=== PATIENT | female | born 2000 | race African-American/Black ===

== ENCOUNTER 2024-08-28 21:42 | Emergency (ER) | payer OTHER, SELFPAY ==
[2024-08-28 21:44] VITALS: BP 173/107; PULSE 126; RESP 18; TEMP 36.8; O2SAT 100
[2024-08-28] MEDS: SODIUM CHLORIDE 0.9% IV 1,000 ML 999 ML IV CONT (23:07)
[2024-08-28] MEDS: ONDANSETRON INJ 4 MG/2 ML VIAL IV PUSH (23:07)
[2024-08-28 23:20] LABS: Basophils Percent Auto 0.4 % (0.2-1.2); Hematocrit 41.2 % (37.0-47.0); Hemoglobin 13.2 g/dL (12.0-15.0); Immature Granulocyte Absolute 0.01 K/mm3 (0.00-0.031); Immature Granulocyte Percent A 0.1 % (0-0.5); Lymphocytes Absolute Auto 0.69 K/mm3 (0.9-3.2); Lymphocytes Percent Auto 9.9 % (18.3-44.2); Mean Corpuscular Hemoglobin 24.8 pg (26-34); Mean Corpuscular Volume 77.3 fl (80-100); Mean Platelet Volume 9.2 fl (7.4-10.4); Monocytes Absolute Auto 0.5 K/mm3 (0.1-0.6); Neutrophils Absolute Auto 5.8 K/mm3 (1.3-6.7); Neutrophils Percent Auto 82.6 % (45.5-73.1); Platelet Count Result 269 k/mm3 (150-375); Red Blood Count 5.33 M/mm3 (4.2-5.4); Red Cell Distribution Width 18.8 % (11.5-14.5)
[2024-08-28 23:22] VITALS: PULSE 112; RESP 26; O2SAT 99
[2024-08-28 23:30] VITALS: PULSE 105; RESP 18; O2SAT 100
[2024-08-28 23:31] VITALS: BP 149/100; PULSE 103; RESP 18; O2SAT 100
[2024-08-28 23:43] LABS: Alanine Aminotransferase 75 U/L (6-35); Albumin Level 5.3 g/dL (3.5-5.1); Alkaline Phosphatase 113 U/L (38-126); Anion Gap 15 mmol/L (4-12); Aspartate Amino Transferase 154 U/L (14-36); Bilirubin,Total 1.6 mg/dL (0.2-1.3); Blood Urea Nitrogen 12 mg/dL (7-17); Calcium 9.9 mg/dL (8.4-10.2); Carbon Dioxide 21 mmol/L (22-30); Chloride 105 mmol/L (98-107); Estimated Glomerular Filt Rate > 60; Glucose 97 mg/dL (65-110); Lipase 63 U/L (23-300); Magnesium 1.4 mg/dL (1.6-2.3); Potassium 4.1 mmol/L (3.4-5.0); Sodium 141 mmol/L (137-145)
[2024-08-28 23:45] VITALS: PULSE 111; RESP 19; O2SAT 100
[2024-08-28 23:47] LABS: SPREG INTERNAL CONTROL Positive; Serum Qual hCG Negative
--- NOTE | 2024-08-28 23:51 | PC.NURSE ---
pt given ice chips and crackers per request. This is PO Challenge for patient per MD. RN to reassess patient.
[2024-08-28 23:57] LABS: Influenza A QL RT-PCR Negative (Negative); Influenza B QL RT-PCR Negative (Negative); SARS-CoV-2 RNA PCR Negative (Negative)
[2024-08-29] VITALS (7 sets, daily range): BP systolic 149–158; BP diastolic 107–110; PULSE 102–126; RESP 17–24; O2SAT 98–100
--- NOTE | 2024-08-29 00:02 | ED_ITS ---
HPI - General Adult General Chief complaint: Nausea/Vomiting/Diarrhea Stated complaint: ETOH withdrawl, n.v.d Time Seen by Provider: 08/28/24 22:55 History of Present Illness HPI narrative: Patient is a 23-year-old female who presents to the emergency department this evening complaining of nausea, vomiting and diarrhea since yesterday evening. Patient states that she is unsure if her symptoms are due to a GI bug or if she is withdrawing from alcohol. States that her last drink was yesterday arrived and 11:00 p.m.. Patient states that she normally drinks for cocktails per day, davids. Admits that she has never been in alcohol withdrawal before and never been admitted to the hospital for concern for alcohol withdrawals. Currently denying any chest pain or shortness of breath. Admits that she has had a mild headache, sore throat, and states that she has been having some anxiety as well which she has a history of. No additional symptoms or concerns at this time. Related Data Allergies Allergy/AdvReac Type Severity Reaction Status Date / Time red dye Allergy Intermediate Rash Verified 08/28/24 23:05 Review of Systems 2 Review of Systems: All systems are reviewed and are negative unless stated otherwise in the HPI. Exam 2 Narrative: General: Alert, awake, afebrile, in no acute distress. HEENT: PERRL, no rhinorrhea, no post nasal drip, oropharynx clear. Neck: Trachea midline, no JVD, no lymphadenopathy. Cardiovascular: Tachycardic with regular rhythm, no murmurs, rubs or gallops, no peripheral edema. Respiratory: Clear to auscultation bilaterally, no tachypnea, no wheezing, no rhonchi, no rubs, no respiratory distress. Abdomen: Soft, nontender, nondistended, no rebound, no guarding, no peritoneal signs. Musculoskeletal: No joint swelling or deformity, normal muscle tone. Skin: No rashes or petechia, no signs of infection. Psychiatric: Alert and oriented, normal behavior and judgment for situation. Neurological: Alert and oriented to person, place, and time. Follows all commands. No focal deficits, speech is clear and fluent. Course Vital Signs Vital signs: Vital Signs Temperature 98.2 F 08/28/24 21:44 Pulse Rate 126 H 08/28/24 21:44 Respiratory Rate 18 08/28/24 21:44 Blood Pressure 173/107 H 08/28/24 21:44 Pulse Oximetry 100 08/28/24 21:44 Oxygen Delivery Room Air 08/28/24 21:44 Temperature 98.2 F 08/28/24 21:44 Pulse Rate 104 H 08/29/24 00:59 Respiratory Rate 17 08/29/24 00:59 Blood Pressure 158/110 H 08/29/24 00:01 Pulse Oximetry 99 08/29/24 00:59 Oxygen Delivery Room Air 08/28/24 21:44 Medical Decision Making MDM Narrative Medical decision making narrative: The patient was evaluated by myself in the emergency department. History is obtained from patient who is an independent historian and physical exam was performed. External medical records were reviewed at this time. IV was established and pertinent tests were ordered. Patient was administered 2 L IV fluid bolus with normal saline, 4 mg of IV Zofran and 0.5 mg of IV Ativan. Laboratory results obtained revealing a magnesium of 1.4, AST 154, ALT 75 otherwise unremarkable. Patient was administered 1 g of IV magnesium at this time. Differential diagnosis considerations include dehydration, electrolyte derangements, acute viral syndrome, gastroenteritis, alcohol withdrawal. Comorbidities impacting this visit include daily alcohol use/alcohol use disorder. I have evaluated and discussed social determinants of health with the patient that could potentially impact subsequent diagnosis and treatment plans. On repeat assessment of the patient, reevaluation revealed that the patient is doing well and is in no acute distress. Patient symptoms have improved since she arrived to our emergency department. Repeat vital signs were all reviewed and noted to be stable with repeat heart rate of 100 beats per minute and blood pressure of 149/107 mmHg. Differential diagnosis and treatment plan were discussed with the patient at bedside. Patient agrees with discussion and after shared medical decision making agrees with discharge. All questions were answered to the patient's satisfaction. Patient will follow up with her PCP in 3-5 days. She was provided with a script for Librium to use as instructed for alcohol withdrawals. Patient was provided with strict return precautions and instructed to return to the emergency department if any new or worsening symptoms develop. The patient was discharged in stable condition. Vital Signs Vital Signs: Vital Signs Temperature 98.2 F 08/28/24 21:44 Pulse Rate 126 H 08/28/24 21:44 Respiratory Rate 18 08/28/24 21:44 Blood Pressure 173/107 H 08/28/24 21:44 Pulse Oximetry 100 08/28/24 21:44 Oxygen Delivery Room Air 08/28/24 21:44 Temperature 98.2 F 08/28/24 21:44 Pulse Rate 104 H 08/29/24 00:59 Respiratory Rate 17 08/29/24 00:59 Blood Pressure 158/110 H 08/29/24 00:01 Pulse Oximetry 99 08/29/24 00:59 Oxygen Delivery Room Air 08/28/24 21:44 Lab Data 08/28/24 23:11 08/28/24 23:11 Labs: Lab Results 08/28/24 08/29/24 08/29/24 Range/Units 23:11 00:42 00:43 WBC 7.0 (4.5-10.0) K/mm3 RBC 5.33 (4.2-5.4) M/mm3 Hgb 13.2 (12.0-15.0) g/dL Hct 41.2 (37.0-47.0) % MCV 77.3 L (80-100) fl MCH 24.8 L (26-34) pg MCHC 32.0 (32-36) g/dl RDW 18.8 H (11.5-14.5) % Plt Count 269 (150-375) k/mm3 MPV 9.2 (7.4-10.4) fl Immature Gran % (Auto) 0.1 (0-0.5) % Neut % (Auto) 82.6 H (45.5-73.1) % Lymph % (Auto) 9.9 L (18.3-44.2) % [place] % (Auto) 7.0 (2.6-8.5) % Eos % (Auto) 0.0 (0-4.4) % Baso % (Auto) 0.4 (0.2-1.2) % Lymph # (Auto) 0.69 L (0.9-3.2) K/mm3 [place] # (Auto) 0.5 (0.1-0.6) K/mm3 Eos # (Auto) 0.0 (0-0.3) K/mm3 Baso # (Auto) 0.0 (0.0-0.1) K/mm3 Abs Immat Gran (auto) 0.01 (0.00-0.031) K/mm3 Absolute Neuts (auto) 5.8 (1.3-6.7) K/mm3 Absolute Nucleated RBC 0.000 (0.0-0.012) K/mm3 Nucleated RBC % 0.0 (0.0-0.2) % Sodium 141 (137-145) mmol/L Potassium 4.1 (3.4-5.0) mmol/L Chloride 105 (98-107) mmol/L Carbon Dioxide 21 L (22-30) mmol/L Anion Gap 15 H (4-12) mmol/L BUN 12 (7-17) mg/dL Creatinine 0.91 (0.7-1.0) mg/dL Estim Creat Clear Calc Not Reportable Estimated GFR > 60 (59 - ) Glucose 97 (65-110) mg/dL Calcium 9.9 (8.4-10.2) mg/dL Magnesium 1.4 L (1.6-2.3) mg/dL Total Bilirubin 1.6 H (0.2-1.3) mg/dL AST 154 H (14-36) U/L ALT 75 H (6-35) U/L Alkaline Phosphatase 113 (38-126) U/L Total Protein 9.0 H (6.3-8.2) g/dL Albumin 5.3 H (3.5-5.1) g/dL Lipase 63 (23-300) U/L Serum HCG, Qual Negative Urine Color Pending Urine Appearance Pending Urine pH Pending Ur Specific [place] Pending Urine Protein Pending Urine Glucose (UA) Pending Urine Ketones Pending Ur Blood (Man) Pending Urine Nitrate Pending Urine Bilirubin Pending Urine Urobilinogen Pending Leukocyte Esterase Rfl Pending POC Urine HCG, Qual Pending Influenza A (RT-PCR) Negative (Negative) Influenza B (RT-PCR) Negative (Negative) SARS-CoV-2 RNA (RT-PCR) Negative (Negative) Discharge Plan Discharge Clinical Impression: Nausea & vomiting, Diarrhea, Alcohol use disorder, Hypomagnesemia Patient Disposition: Home, Self-Care Condition: Improved Instructions: Antibiotic Form, Gastroenteritis (ED), Alcohol Use Disorder (ED) Additional Instructions: Please follow-up with your family doctor within the next 3-5 days. Return to the emergency department if any new or worsening symptoms develop. Take the prescribed medication as instructed to help with alcohol withdrawal symptoms. Patient Language: Yoruba Prescriptions: New chlordiazepoxide HCl 25 mg capsule 25 mg PO .qd 4 Days Qty: 15 0RF Rx Instructions: Take 50 mg every 6 hours on day 1, 25 mg every 6 hours on day 2, 25 mg every 12 hours on day 3 and 25 mg once on day 4. Follow-up/Referrals: Danica Hernandez SENIOR QUALITY ENGINEER-C [Primary Care Provider] - 3 Days Time of Disposition: 01:01
[2024-08-29] MEDS: SODIUM CHLORIDE 0.9% IV 1,000 ML 999 ML IV CONT (00:16)
[2024-08-29] MEDS: LORazepam INJ (*CRX) 2 MG/ML VIAL 0.5 MG IV PUSH (00:17)
[2024-08-29] MEDS: MAGNESIUM SULF 1 GM/D5W 100 ML 1 GM/100 ML BAG IVPB (00:18)
[2024-08-29 01:03] LABS: BEDSIDEPREGUCG Negative (Negative)
[2024-08-29 01:48] LABS: Add Urine Microscopic? YES; Appearance Urine Clear (Clear); Bacteria Urine Rare /hpf; Bilirubin Urine Negative (Negative); Blood Urine 3+ (Negative); Color Urine Dark Yellow (Yellow); Glucose Urine UA Negative (Negative); Ketones Urine 3+ mg/dL (Negative); Leukocyte Esterase Ur Negative LEU/UL (Negative); Need Manual Microscopic Reviewed; Nitrate Urine Negative (Negative); Non Pathogenic Casts 0-2; Protein Urine 2+ mg/dL (Negative); RBC Urine 0-2 /hpf (0-2); Specific Grav Ur 1.031 (1.001-1.035); Squamous Epithelial Cell Urine Few /hpf (Few); WBC Urine 0-5 /hpf (0-3); pH Urine 6.5 (5.0-9.0)
== END 2024-08-29 02:06 | disposition home or self-care (01) ==
PROVIDERS: Emergency Provider Emergency Medicine; PCP Nurse Practitioner
DX: R11.2 Nausea with vomiting, unspecified (principal); F10.90 Alcohol use, unspecified, uncomplicated; E83.42 Hypomagnesemia; Z20.822 Contact with and (suspected) exposure to COVID-19
CPT/HCPCS: 36415; 80053; 81001; 81025; 83690; 83735; 84703; 85025; 87636; 96365; 96375; 99284; J2060; J2405; J3475; J7030

== ENCOUNTER 2024-11-10 12:19 | Outpatient (CLI) | payer OTHER, SELFPAY ==
--- OUTSIDE RECORDS SUMMARY | 2024-11-10 12:49 | XMS_ITS | Clinical Summary ---
Author Organization [facility] Address [address] [place] [address] Phone Care Team Providers Care Ensemble Member Name Role Phone Provider, None Primary Care Provider Unavailabl e Allergies Active Allergy Reactions Criticality Noted Date Comments Red Dye #40 (Allura Red) Hives,Other (se e Comments),Rash Medium 09/14/2018 Medications ondansetron (ZOFRAN) 4 MG Tablet Take 1 Tab by mouth every 8 hours as needed for Nausea - 1st line. 10 Tab 0 Active Additional Information Patient not taking.Reported on 10/15/2023 Active Problems Problem Noted Date Diagnosed Date Major depressive disorder, single episode, mild 01/23/2020 Seizures Family History Medical History Relation Name Comments Alcohol Abuse Father Depression Maternal Grandmother chroni c Alcohol Abuse Paternal Grandfather Relation Name Status Comments Father Maternal Grandmother Paternal Grandfather Social History Tobacco Use Types Packs/Day Years Used Date Smoking Tobacco: Never Smokeless Tobacco: Never Tobacco Cessation:Counseling Given: Not Answered Alcohol Use Standard Drinks/Week Comments No 0 (1 standard drink = 0.6 oz pur e alcohol) PHQ-2 Answer Date Recorded Total Score - Questions 1-9 8 03/2020 Education Answer Date Recorded What is the highest level of school you have completed or the highest degree you have received? 11th grade 01/22/2020 Sexually Active Control Partners Comments Yes Implant Male Comments No Sex and Gender Information Value Date Recorded Sex Assigned at Not on file Legal Sex Female 11:09 PM CDT Gender Identity Not on file Sexual Orientation Not on file Last Filed Vital Signs Vital Sign Reading Time Taken Comments Blood Pressure 136/78 10/25/2023 10:49 AM CDT Pulse 70 10/25/2023 10:49 AM CDT Temperature 37.1 C (98.7 F) 10/25/2023 10:49 AM CDT Respiratory Rate 18 10/25/2023 10:49 AM CDT Oxygen Saturation 98% 10/25/2023 10:49 AM CDT Inhaled Oxygen Concentration - - Weight 68 kg (150 lb) 10/15/2023 6:26 PM PULP BEATER Height 170.2 cm (5' 7 ) 06/03/2020 12:03 PM CDT Body Mass Index - - Plan of Treatment Health Maintenance Due Date Last Done Comments Pap Smear 12/05/2023 Influenza Immunization (#1) 2024 SARS-COV-2 Immunization ( season) 2024 Respiratory Syncytial Virus (RSV) Immunization (Adult) (1 - 1-dose 75+ series) 2077 Hepatitis B Immunization Completed 003, 02/12/2003, 2002 Pneumococcal Immunization Combined Aged Out 12/06/2003, 04/17/2003, 02/12/2003 No longer eligible based on patient's age to complete this topic Measles Mumps Rubella (MMR) Immunization Discontinued 01/31/2007, 12/06/2003 Polio (IPV) Immunization Discontinued 007, 03/06/2004, 04/17/2003, Additional history exists Varicella Immunization Discontinued 01/31/2007, 2003 Hepatitis A Immunization Discontinued 04/19/2008, 04/17 DTaP/Tdap/Td Immunization Discontinued 2013, 01/31/2007, 03/06/2004, Additional history exists TdaP Immunization Completed 05/08/2014 Human Papillomavirus (HPV) Immunization Completed 03/13/2016, 03/20/2015, 05/08/2014 Meningococcal Immunization (ACWY) Completed 01/13/2019, 01/13/2019, 05/08/2014 Meningococcal B Immunization Completed 05/23/2019, 01/13/2019 Hepatitis C Virus (HCV) Screening Completed 10/25/2023 Rotavirus Immunization Aged Out No lo nger eligible based on patient's age to complete this topic Goals Goal Patient Goal Type Associated Problems Recent Progress Patient-Stated? Author Behavioral Health Behavioral Health On track(2019 10:54 AM CDT) No Deloris Luther LCPC Note: Pt's declined to identify a goal; pt's aunt reported and pt agreed with a goal to clear her mind , always been depressed since her mom . Goal Reviewed with: patient and Aunt/Guardian. Readiness to change: Not yet ready to make a change Department associated with goal: [facility] Steps to achieve goal: 1. Pt to attend psychotherapy sessions at least twice monthly. 2. Pt to be able to identify and self disclose how she is feeling emotionally and at least one contributing factor during each session. Behavioral Health Behavioral Health On track(2019 10:54 AM CDT) Deloris Marie LCPC Note: Maureen to gain some healing of loss and grief, due to her mother's . Goal Reviewed with: patient Readiness to change: Not yet ready to make a change Department associated with goal: [facility] Steps to achieve goal: 1. Jimmiela to disclose and process thoughts and feelings of loss and grief. 2. Jimmiela to learn about and express insight gained regarding the process and impact of loss and grief. 3. Jimmiela to identify at least two outlets for thoughts and feelings to cope and gain relief from distressing emotions/thoughts. Procedures Procedure Name Priority Date/Time Associated Diagnosis Comments HEPATITIS PANEL ACUTE (AHP) Routine 10/25/2023 11:17 AM CDT Possible exposure to STD from Last 3 Months or Most Recently Relevant to Health Maintenance Results * HEPATITIS PANEL ACUTE (AHP) (10/25/2023 11:17 AM CDT) HEPATITIS A IGM ANTIBODY NON DETECTED NON DETECTED [facility] [id number] B 10/25/2023 11:18 PM CDT [facility] Comment: IGM Antibodies to HAV not detected. Does not exclude early acute or recovered HAV infection. HEP B CORE AB (IGM) NON DETECTED NON DETECTED [facility] [id number] B 10/25/2023 11:18 PM CDT [facility] Comment:IGM anti-HBC not det ected. Does not exclude the possibility of exposure to or infection with HBV. HEPATITIS B SURFACE ANTIGEN NON DETECTED NON DETECTED [facility] [id number] B 10/25/2023 11:18 PM CDT [facility] Comment:A nonreactive test r esult does not exclude the possibility of exposure to or infection with Hepatitis B virus. A nonreactive test result in individuals with prior exposure to hepatitis B may be due to antigen levels below the detection limit of this assay or lack of antigen reactivity to the antibodies in this assay. hepatitis C antibody 0.10 <1 S/CO [facility] [id number] B 10/25/2023 11:18 PM CDT [facility] Comment: Signal/Cutoff ratio < 0.79 is Nondetected Signal/Cutoff ratio 0.80-0.99 is Grayzone Signal/Cutoff ratio > 0.99 is Detected Supplemental assays are recommended if signal/cutoff ratio is >/=1.00. Signal/cutoff ratio result >/= 5.00 is 97% predictive of positivity for recombinant immunoblot assay (RIBA) and will be reported to the [place] Department of Public Health as required. Blood Venipuncture / Unknown 10/25/2023 11:17 AM CDT 10/25/2023 11:18 AM CDT us Rell Jones [facility] Final R esult [facility] [address] [place] [address], [place] from Last 3 Months or Most Recently Relevant to Health Maintenance Insurance [place] Care Teams Ensemble Member Relationship Specialty Start Date End Date Provider, None [place] PCP - General 10/15/23
--- OUTSIDE RECORDS SUMMARY | 2024-11-10 12:49 | XMS_ITS | Clinical Summary ---
Author Organization [facility] Address [address] [place] [address] Care Team Providers Care Nuclear Plant Construction Worker Name Role Phone Monica Lopez MD Primary Care Provider Allergies Active Allergy Reactions Criticality Noted Date Comments Red Dye Hives Medium 09/14/2018 Medications No known medications Active Problems Problem Noted Date Diagnosed Date History of seizures as a child 10/27/2022 Overview (10/27/2022): has outgrown. no longer on seizure medications. last seziure in 2012. Iron deficiency anemia due to chronic blood loss 10/27/2022 Resolved Problems Problem Noted Date Diagnosed Date Resolved Date Seizures (CMS/HCC) 10/01/2020 Major depressive disorder, s leanne episode, mild 01/23/2020 10/27/2022 Seizure-like activity (CMS/HCC) 06/12/2019 10/27/2022 Overview (10/01/2020): Last Assessment & Plan: Recent episode related to position that she was in and likely resulted in a passing out spell, not her typical seizure. She has been seizure free since 2012. No additional restrictions needed at this time since this was a triggered event and not a seizure. Call for any further events of concern, if any. Craniosynostosis 04/25/2013 10/27/2022 Partial seizure disorder (CMS/HCC) 04/25/2013 10/27/2022 Overview (10/01/2020): Last Assessment & Plan: Has remained seizure free since 2012. No present neurological concerns. Crab Meat Processor's permit authorization completed. Call for any future neurological concerns. Immunizations Immunization Administration Dates Next Due DTaP 01/31/2007, 4,06/07/2003,04/17/2003 ,02/12/2003 HPV, Quadrivalent 05/08/2014 HPV9 03/13/2016,03/20/2015 Hep A, Pediatric 04/19/2008,05/14/2006 Hep B, Adolescent or Pediatric 06/07/2003,2002,2002 HiB 03/06/2004,04/17/2003,02/12/2003 IPV 01/31/2007,03/06/2004,04/17/2003 ,02/12/2003 MMR 01/31/2007,12/06/2003 Meningococcal B, OMV (Bexsero) 05/23/2019,2018 Meningococcal Conjugate (Menveo) 05/08/2014 Meningococcal MCV4P (Menactra) 01/13/2019 Pneumococcal Conjugate 7-Valent 12/06/2003,04/17,02/12/2003 Tdap 05/08/2014 Varicella 01/31/2007,12/06/2003 Surgical History Surgery Date Site/Laterality Comments CRANIECTOMY FOR CRANIOSYNOSTOSIS when she was a baby Medical History Medical History Date Comments Eczema Seizure disorder (HCC) Craniosynostosis 04/25/2013 Partial seizure disorder (HCC) 04/25/2013 L ast Assessment & Plan: Has remained seizure free since 2012. No present neurological concerns. Crab Meat Processor's permit authorization completed. Call for any future neurological concerns. Seizure-like activity (HCC) 06/12/2019 Last Assessment & Plan: Recent episode related to position that she was in and likely resulted in a passing out spell, not her typical seizure. She has been seizure free since 2012. No additional restrictions needed at this time since this was a triggered event and not a seizure. Call for any further events of concern, if any. Family History Medical History Relation Name Comments No Known Problems Father Sickle cell trait Mother Depression Other mother's side o f the family Relation Name Status Comments Father Mother Other Social History Tobacco Use Types Packs/Day Years Used Date Smoking Tobacco: Never Smokeless Tobacco: Never Tobacco Cessation:Counseling Given: Not Answered PHQ-2 Answer Date Recorded PHQ-2 Total Score (If total score is 3 or more points, staff should administer the PHQ-9) 0 10/27/2022 Personal Safety Answer Date Recorded Getting School Help Needed Not on file 07/31 Comments No Sex and Gender Information Value Date Recorded Sex Assigned at Not on file Legal Sex Female 11:21 AM ELECTRONICS SUPERVISOR Gender Identity Not on file Sexual Orientation Not on file Obstetrics History Last Filed Vital Signs Vital Sign Reading Time Taken Comments Blood Pressure 114/68 10/27/2022 8:48 AM CDT Pulse 62 10/27/2022 8:48 AM CDT Temperature 38.2 C (100.7 F) 09/12/2021 12:42 PM ELECTRONICS SUPERVISOR Respiratory Rate 16 09/12/2021 12:42 PM ELECTRONICS SUPERVISOR Oxygen Saturation 98% 09/12/2021 12:42 PM ELECTRONICS SUPERVISOR Inhaled Oxygen Concentration - - Weight 65.8 kg (145 lb) 10/27/2022 8:48 AM CDT Height 170.2 cm (5' 7 ) 10/27/2022 8:48 AM CDT Body Mass Index 22.71 10/27/2022 8:48 AM CDT Plan of Treatment Health Maintenance Due Date Last Done Comments Cervical Cancer Screening 2002 Hepatitis C Screening 2002 Depression Screening 10/28/2023 10/27/2022 Regular Well Visit/Exam 18-64 10/28/2023 10/27/2022 Influenza Vaccine (#1) 2024 DTaP/Tdap/Td Vaccine (7 - Td or Tdap) 05/08/2024 05/08/2014, 01/31/2007, 03/06/2004, Additional history exists Hepatitis B Screening Completed 06/07/2003 , 02/12/2003, 2002 Pneumococcal vaccine <65 Completed 004, 04/17/2003, 02/12/2003 Varicella Vaccines Completed 01/31/2007, 12/06/2003 HPV Vaccines Completed 03/13/2016, 08/0 12/2014, 05/08/2014 Meningococcal Vaccine Completed 01/13/2019, 014 Meningococcal B Vaccine Completed 05/23/2019, 01/[address] [place] [address] Member Subscriber Plan / Payer ( fective 2018-Present) Name:Maureen Troncoso Relation to Subscriber:Self Name:Maureen Troncoso Payer ID:[id number] (NAIC) Type:MEDICAID RISK OTHER Address: [place] [id number] Care Teams Nuclear Plant Construction Worker Relationship Specialty Start Date End Date Monica Lopez MD PCP - General Family Practice 10/27/22
--- OUTSIDE RECORDS SUMMARY | 2024-11-10 12:49 | XMS_ITS | Referral Summary ---
Author Organization [facility] Address [address] [place] [address] Care Team Providers Care Cooker Operator Name Role Phone Monica Lopez MD Primary [...] free since 2012. No present neurological concerns. Real Estate Agent/Broker's permit authorization completed. Call for any future neurological concerns. Immunizations Immunization Administration Dates Next Due DTaP 01/31/2007, 4,06/07/2003,04/17/2003 ,02/12/2003 HPV, Quadrivalent 05/08/2014 HPV9 03/13/2016,03/20/2015 Hep A, Pediatric 04/19/2008,05/14/2006 Hep B, Adolescent or Pediatric 06/07/2003,2002,2002 HiB 03/06/2004,04/17/2003,02/12/2003 IPV 01/31/2007,03/06/2004,04/17/2003 ,02/12/2003 MMR 01/31/2007,12/06/2003 Meningococcal B, OMV (Bexsero) 05/23/2019,2018 Meningococcal Conjugate (Menveo) 05/08/2014 Meningococcal MCV4P (Menactra) 01/13/2019 Pneumococcal Conjugate 7-Valent 12/06/2003,04/17,02/12/2003 Tdap 05/08/2014 Varicella 01/31/2007,12/06/2003 Social History Tobacco Use Types Packs/Day Years [...] on file Legal Sex Female 11:21 AM TELEVISION ANTENNA INSTALLER Gender Identity Not on file Sexual Orientation Not on file Last Filed Vital Signs Vital Sign Reading Time Taken Comments Blood Pressure 114/68 10/27/2022 8:48 AM CDT Pulse 62 10/27/2022 8:48 AM CDT Temperature 38.2 C (100.7 F) 09/12/2021 12:42 PM TELEVISION ANTENNA INSTALLER Respiratory Rate 16 09/12/2021 12:42 PM TELEVISION ANTENNA INSTALLER Oxygen Saturation 98% 09/12/2021 12:42 PM TELEVISION ANTENNA INSTALLER Inhaled Oxygen Concentration - - Weight 65.8 kg (145 lb) 10/27/2022 8:48 AM CDT Height 170.2 cm (5' 7 ) 10/27/2022 8:48 AM CDT Body Mass Index 22.71 10/27/2022 8:48 AM CDT Plan of Treatment Not on file Insurance Care Teams Cooker Operator Relationship Specialty Start Date End Date Monica Lopez MD PCP - General Family Practice 10/27/22
[2024-11-10 13:17] LABS: Alanine Aminotransferase 16 U/L (6-35); Albumin Level 4.5 g/dL (3.5-5.1); Alkaline Phosphatase 54 U/L (38-126); Anion Gap 10 mmol/L (4-12); Aspartate Amino Transferase 26 U/L (14-36); Bilirubin,Total 0.3 mg/dL (0.2-1.3); Blood Urea Nitrogen 8 mg/dL (7-17); Calcium 9.5 mg/dL (8.4-10.2); Carbon Dioxide 24 mmol/L (22-30); Chloride 105 mmol/L (98-107); Cholesterol 177 mg/dL (0-200); Estimated Glomerular Filt Rate > 60; Glucose 99 mg/dL (65-110); HDL Direct 59 mg/dL; Potassium 4.1 mmol/L (3.4-5.0); Sodium 139 mmol/L (137-145); Triglycerides 69 mg/dL (<150)
[2024-11-10 13:28] LABS: LDL Cholesterol Direct 80 mg/dL
[2024-11-10 13:46] LABS: Thyroid Stimulating Hormone Reflex 0.656 uIU/mL (0.465-4.68)
== END 2024-11-10 12:20 | disposition home or self-care (01) ==
PROVIDERS: PCP Nurse Practitioner Family; Visit Provider Nurse Practitioner Family
DX: F41.9 Anxiety disorder, unspecified (principal); Z13.220 Encounter for screening for lipoid disorders; R74.8 Abnormal levels of other serum enzymes
CPT/HCPCS: 36415; 80053; 80061; 82607; 84443

== ENCOUNTER 2024-12-03 16:50 | Emergency (ER) | payer OTHER, MEDICAID, SELFPAY ==
[2024-12-03] VITALS (13 sets, daily range): BP systolic 131–163; BP diastolic 83–87; PULSE 82–104; RESP 15–24; TEMP 36.8; O2SAT 98–100
--- OUTSIDE RECORDS SUMMARY | 2024-12-03 16:52 | XMS_ITS | Referral Summary ---
Author Organization [facility] Address [address] [place] [address] Care Team Providers Care Inspector Floor Name Role Phone Monica Lopez MD Primary [...] free since 2012. No present neurological concerns. Probation Officer's permit authorization completed. Call for any future [...] on file Legal Sex Female 11:21 AM DRY ROASTER Gender Identity Not on file Sexual Orientation Not on file Last Filed Vital Signs Vital Sign Reading Time Taken Comments Blood Pressure 114/68 10/27/2022 8:48 AM CDT Pulse 62 10/27/2022 8:48 AM CDT Temperature 38.2 C (100.7 F) 09/12/2021 12:42 PM DRY ROASTER Respiratory Rate 16 09/12/2021 12:42 PM DRY ROASTER Oxygen Saturation 98% 09/12/2021 12:42 PM DRY ROASTER Inhaled Oxygen Concentration - - Weight 65.8 kg (145 lb) 10/27/2022 8:48 AM CDT Height 170.2 cm (5' 7 ) 10/27/2022 8:48 AM CDT Body Mass Index 22.71 10/27/2022 8:48 AM CDT Plan of Treatment Not on file Insurance Care Teams Inspector Floor Relationship Specialty Start Date End Date Monica Lopez MD PCP - General Family Practice 10/27/22
--- OUTSIDE RECORDS SUMMARY | 2024-12-03 16:52 | XMS_ITS | Clinical Summary ---
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 Steps to achieve goal: 1. Pt to attend psychotherapy sessions at least twice monthly. 2. Pt to be able to identify and self disclose how she is feeling emotionally and at least one contributing factor during each session. Behavioral Health Behavioral Health On track(2019 10:54 AM CDT) No Deloris Luther LCPC Note: Maureen to gain some healing of loss and grief, due to her mother's . Goal Reviewed with: patient Readiness to change: Not yet ready to make a change Department associated with goal: [facility] Steps to achieve goal: [...] A IGM ANTIBODY NON DETECTED NON DETECTED [facility] ARCH [id number] B 10/25/2023 11:18 PM CDT [facility] Comment: IGM Antibodies to HAV not detected. Does not exclude early acute or recovered HAV infection. HEP B CORE AB (IGM) NON DETECTED NON DETECTED [facility] ARCH [id number] B 10/25/2023 11:18 PM CDT [facility] Comment:IGM anti-HBC not det ected. Does not exclude the possibility of exposure to or infection with HBV. HEPATITIS B SURFACE ANTIGEN NON DETECTED NON DETECTED [facility] ARCH [id number] B 10/25/2023 11:18 PM CDT [facility] Comment:A nonreactive test r esult does not exclude the possibility of exposure to or infection with Hepatitis B virus. A nonreactive test result in individuals with prior exposure to hepatitis B may be due to antigen levels below the detection limit of this assay or lack of antigen reactivity to the antibodies in this assay. hepatitis C antibody 0.10 <1 S/CO [facility] ARCH [id number] B 10/25/2023 11:18 PM CDT [facility] Comment: Signal/Cutoff ratio < 0.79 is Nondetected Signal/Cutoff ratio 0.80-0.99 is Grayzone Signal/Cutoff ratio > 0.99 is Detected Supplemental assays are recommended if signal/cutoff ratio is >/=1.00. Signal/cutoff ratio result >/= 5.00 is 97% predictive of positivity for recombinant immunoblot assay (RIBA) and will be reported to the [place] Department of Public Health as required. Blood Venipuncture / Unknown 10/25/2023 11:17 AM CDT 10/25/2023 11:18 AM CDT us Rell Jones [facility] HEMATOLOGY ORDERABLES Final R esult [facility] [address] [place] [address], [place] from Last 3 Months or Most Recently Relevant to Health Maintenance Insurance [place] Care Teams Insulation Cupola Charger Relationship Specialty Start Date End Date Provider, None [place] PCP - General 10/15/23
--- OUTSIDE RECORDS SUMMARY | 2024-12-03 16:52 | XMS_ITS | Clinical Summary ---
Author Organization [facility] Address [address] [place] [address] Care Team Providers Care Avionics Electronics Technician Name Role Phone Monica Lopez MD Primary [...] free since 2012. No present neurological concerns. Technical Programs Manager's permit authorization completed. Call for any future [...] free since 2012. No present neurological concerns. Technical Programs Manager's permit authorization completed. 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71 10/27/2022 8:48 AM CDT Plan of Treatment Health Maintenance Due Date Last Done Comments Cervical Cancer Screening 2002 Hepatitis C Screening 2002 Depression Screening 10/28/2023 10/27/2022 Regular Well Visit/Exam 18-64 10/28/2023 10/27/2022 DTaP/Tdap/Td Vaccine (7 - Td or Tdap) 05/08/2024 05/08/2014, 01/31/2007, 03/06/2004, Additional history exists Influenza Vaccine (Season Ended) 2025 Hepatitis B Screening Completed 06/07/2003 , 02/12/2003, 2002 Pneumococcal vaccine <65 Completed 004, 04/17/2003, 02/12/2003 Varicella Vaccines Completed 01/31/2007, 12/06/2003 HPV Vaccines Completed 03/13/2016, 08/0 12/2014, 05/08/2014 Meningococcal Vaccine Completed 01/13/2019, 014 Meningococcal B Vaccine Completed 05/23/2019, 01/[address] [place] [address] [place] [address] Member Subscriber Plan / Payer ( fective 2018-Present) Name:Maureen Troncoso Relation to Subscriber:Self Name:Maureen Troncoso Payer ID:[id number] (NAIC) Type:MEDICAID RISK OTHER Address: [place] [id number] Care Teams Avionics Electronics Technician Relationship Specialty Start Date End Date Monica Lopez MD PCP - General Family Practice 10/27/22
[2024-12-03 17:15] LABS: Basophils Absolute Auto 0.1 K/mm3 (0.0-0.1); Basophils Percent Auto 0.7 % (0.2-1.2); Hematocrit 35.6 % (37.0-47.0); Hemoglobin 11.2 g/dL (12.0-15.0); Immature Granulocyte Absolute 0.02 K/mm3 (0.00-0.031); Immature Granulocyte Percent A 0.3 % (0-0.5); Lymphocytes Percent Auto 18.6 % (18.3-44.2); Mean Corpuscular HGB Conc 31.5 g/dl (32-36); Mean Corpuscular Hemoglobin 24.8 pg (26-34); Mean Corpuscular Volume 78.8 fl (80-100); Mean Platelet Volume 10.2 fl (7.4-10.4); Monocytes Absolute Auto 0.4 K/mm3 (0.1-0.6); Monocytes Percent Auto 5.3 % (2.6-8.5); Neutrophils Absolute Auto 5.7 K/mm3 (1.3-6.7); Neutrophils Percent Auto 75.1 % (45.5-73.1); Platelet Count Result 269 k/mm3 (150-375); Red Blood Count 4.52 M/mm3 (4.2-5.4); Red Cell Distribution Width 17.1 % (11.5-14.5); White Blood Count 7.5 K/mm3 (4.5-10.0)
[2024-12-03 17:23] LABS: BEDSIDEPREGUCG Negative (Negative)
[2024-12-03 17:25] LABS: Alanine Aminotransferase 24 U/L (6-35); Albumin Level 4.5 g/dL (3.5-5.1); Alkaline Phosphatase 63 U/L (38-126); Anion Gap 14 mmol/L (4-12); Aspartate Amino Transferase 44 U/L (14-36); Bilirubin,Total 0.7 mg/dL (0.2-1.3); Blood Urea Nitrogen 10 mg/dL (7-17); Calcium 9.2 mg/dL (8.4-10.2); Carbon Dioxide 21 mmol/L (22-30); Chloride 105 mmol/L (98-107); Estimated CRCL calculation 105 ml/min; Estimated Glomerular Filt Rate > 60; Glucose 83 mg/dL (65-110); Lipase 41 U/L (23-300); Potassium 3.7 mmol/L (3.4-5.0); Sodium 140 mmol/L (137-145)
[2024-12-03] MEDS: PANTOPRAZOLE SODIUM IV 40 MG VIAL IV PUSH (17:28)
[2024-12-03] MEDS: LACTATED RINGERS 1,000 ML 999 ML IV CONT (17:28)
[2024-12-03] MEDS: FAMOTIDINE 20 MG/2 ML VIAL IV PUSH (17:28)
[2024-12-03] MEDS: ONDANSETRON INJ 4 MG/2 ML VIAL IV PUSH (17:28)
--- OUTSIDE RECORDS SUMMARY | 2024-12-03 17:36 | XMS_ITS | Clinical Summary ---
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 Does not exclude early acute or recovered HAV infection. HEP B CORE AB (IGM) NON DETECTED NON DETECTED [facility] ARCH [id number] B 10/25/2023 11:18 PM CDT [facility] Comment:IGM anti-HBC not det ected. Does not exclude the possibility of exposure to or infection with HBV. HEPATITIS B SURFACE ANTIGEN NON DETECTED NON DETECTED [facility] ARCH [id number] B 10/25/2023 11:18 PM CDT [facility] Comment:A nonreactive test r esult does not exclude the possibility of exposure to or infection with Hepatitis B virus. A nonreactive test result in individuals with prior exposure to hepatitis B may be due to antigen levels below the detection limit of this assay or lack of antigen reactivity to the antibodies in this assay. hepatitis C antibody 0.10 <1 S/CO [facility] ARCH [id number] B 10/25/2023 11:18 PM CDT [facility] Comment: Signal/Cutoff ratio < 0.79 is Nondetected Signal/Cutoff ratio 0.80-0.99 is Grayzone Signal/Cutoff ratio > 0.99 is Detected Supplemental assays are recommended if signal/cutoff ratio is >/=1.00. Signal/cutoff ratio result >/= 5.00 is 97% predictive of positivity for recombinant immunoblot assay (RIBA) and will be reported to the [place] Department of Public Health as required. Blood Venipuncture / Unknown 10/25/2023 11:17 AM CDT 10/25/2023 11:18 AM CDT us Rell Jones [facility] HEMATOLOGY ORDERABLES Final R esult [facility] [address] [place] [address], [place] from Last 3 Months or Most Recently Relevant to Health Maintenance Insurance [place] Care Teams Stripper Color Relationship Specialty Start Date End Date Provider, None [place] PCP - General 10/15/23
--- NOTE | 2024-12-03 17:51 | ED_ITS ---
HPI - General Adult General Chief complaint: Nausea/Vomiting/Diarrhea Stated complaint: nausea and diarrhea Time Seen by Provider: 12/03/24 17:05 History of Present Illness HPI narrative: 23-year-old female history of alcohol abuse presents emergency department for evaluation for nausea vomiting diarrhea. Patient states that she did been shown Wednesday and last drank alcohol approximately 3 hours ago. Patient was concerned that she was withdrawing from alcohol and is still having persistent nausea Related Data Allergies Allergy/AdvReac Type Severity Reaction Status Date / Time red dye Allergy Intermediate Rash Verified 12/03/24 17:00 Review of Systems 2 Review of Systems: All systems reviewed & are unremarkable except as noted in HPI and below PMFSH Past Medical History Medical History Anxiety Anemia Family History Family History Mother Depression Anxiety Grandparent Anxiety Depression Social History Social History Smoking status: Never smoker Alcohol intake: former Substance use: never Living arrangements: with roommate(s) Occupation/Education: occupation Exam 2 Narrative: APPEARANCE: Well appearing, no pain, no distress, well-nourished. HEAD: normocephalic, atraumatic. EYES: PERRLA/EOMI, conjunctivae clear. NOSE: Normal no drainage EARS:TMS clear with good light reflex. THROAT: Pharynx clear, no exudate. NECK: Supple. No adenopathy, no masses. RESPIRATORY: Airway patent, respirations nonlabored. Clear to auscultation bilaterally, no rales, rhonchi, wheezing. CARDIOVASCULAR: Regular rate and rhythm without murmurs rubs or gallops. ABDOMINAL: Soft, nontender, nondistended, normal bowel sounds MUSCULOSKELETAL: Moves all extremities. Strength/ROM intact, No edema, No calf tenderness. NEURO: Alert. Cranial nerves II through XII intact. Good gait. Good coordination SKIN: Warm, dry. Normal Color Course Vital Signs Vital signs: Vital Signs Temperature 98.3 F 12/03/24 17:02 Pulse Rate 90 12/03/24 17:02 Respiratory Rate 18 12/03/24 17:02 Blood Pressure 163/87 H 12/03/24 17:02 Pulse Oximetry 100 12/03/24 17:02 Temperature 98.3 F 12/03/24 19:24 Pulse Rate 93 12/03/24 19:24 Respiratory Rate 20 12/03/24 19:24 Blood Pressure 144/87 H 12/03/24 19:24 Pulse Oximetry 100 12/03/24 19:24 Medical Decision Making MDM Narrative Medical decision making narrative: 23-year-old female presents emergency department for evaluation for nausea vomiting and dehydration after 3 day alcohol binge P patient is currently afebrile with no leukocytosis and hemoglobin of 11.2. No acute abnormalities on her CMP UA was negative for infection. Patient's alcohol was 63. Patient did feel improved after rehydration and treatment as antiemetics. Differential Diagnosis Differential Diagnosis: Alcohol abuse, alcohol intoxication, alcohol withdrawal, anxiety, nausea vomiting Vital Signs Vital Signs: Vital Signs Temperature 98.3 F 12/03/24 17:02 Pulse Rate 90 12/03/24 17:02 Respiratory Rate 18 12/03/24 17:02 Blood Pressure 163/87 H 12/03/24 17:02 Pulse Oximetry 100 12/03/24 17:02 Temperature 98.3 F 12/03/24 19:24 Pulse Rate 93 12/03/24 19:24 Respiratory Rate 20 12/03/24 19:24 Blood Pressure 144/87 H 12/03/24 19:24 Pulse Oximetry 100 12/03/24 19:24 Lab Data Lab results reviewed: Yes I reviewed the patient's lab results. 12/03/24 17:10 12/03/24 17:10 Labs: Lab Results 12/03/24 12/03/24 12/03/24 Range/Units 17:09 17:10 17:15 WBC 7.5 (4.5-10.0) K/mm3 RBC 4.52 (4.2-5.4) M/mm3 Hgb 11.2 L (12.0-15.0) g/dL Hct 35.6 L (37.0-47.0) % MCV 78.8 L (80-100) fl MCH 24.8 L (26-34) pg MCHC 31.5 L (32-36) g/dl RDW 17.1 H (11.5-14.5) % Plt Count 269 (150-375) k/mm3 MPV 10.2 (7.4-10.4) fl Immature Gran % (Auto) 0.3 (0-0.5) % Neut % (Auto) 75.1 H (45.5-73.1) % Lymph % (Auto) 18.6 (18.3-44.2) % Mclennan % (Auto) 5.3 (2.6-8.5) % Eos % (Auto) 0.0 (0-4.4) % Baso % (Auto) 0.7 (0.2-1.2) % Lymph # (Auto) 1.40 (0.9-3.2) K/mm3 Mclennan # (Auto) 0.4 (0.1-0.6) K/mm3 Eos # (Auto) 0.0 (0-0.3) K/mm3 Baso # (Auto) 0.1 (0.0-0.1) K/mm3 Abs Immat Gran (auto) 0.02 (0.00-0.031) K/mm3 Absolute Neuts (auto) 5.7 (1.3-6.7) K/mm3 Absolute Nucleated RBC 0.000 (0.0-0.012) K/mm3 Nucleated RBC % 0.0 (0.0-0.2) % Sodium 140 (137-145) mmol/L Potassium 3.7 (3.4-5.0) mmol/L Chloride 105 (98-107) mmol/L Carbon Dioxide 21 L (22-30) mmol/L Anion Gap 14 H (4-12) mmol/L BUN 10 (7-17) mg/dL Creatinine 0.81 (0.7-1.0) mg/dL Estim Creat Clear Calc 105 ml/min Estimated GFR > 60 (59 - ) Glucose 83 (65-110) mg/dL Calcium 9.2 (8.4-10.2) mg/dL Total Bilirubin 0.7 (0.2-1.3) mg/dL AST 44 H (14-36) U/L ALT 24 (6-35) U/L Alkaline Phosphatase 63 (38-126) U/L Total Protein 7.0 (6.3-8.2) g/dL Albumin 4.5 (3.5-5.1) g/dL Lipase 41 (23-300) U/L Urine Color Yellow (Yellow) Urine Appearance Clear (Clear) Urine pH 7.5 (5.0-9.0) Ur Specific [place] 1.030 (1.001-1.035) Urine Protein 1+ H (Negative) mg/dL Urine Glucose (UA) Negative (Negative) mg/dL Urine Ketones Trace H (Negative) mg/dL Ur Blood (Man) Negative (Negative) Urine Nitrate Negative (Negative) Urine Bilirubin Negative (Negative) Urine Urobilinogen 1.0 (<2.0) mg/dL Leukocyte Esterase Rfl Negative (Negative) BREE/UL Urine RBC 0-2 (0-2) /hpf Urine WBC 0-5 (0-3) /hpf Ur Squamous Epith Cells Few (Few) /hpf Urine Bacteria 1+ H /hpf Urine Casts 0-2 POC Urine HCG, Qual (Negative) Ethyl Alcohol 63 (<10) mg/dL 12/03/24 Range/Units 17:21 WBC (4.5-10.0) K/mm3 RBC (4.2-5.4) M/mm3 Hgb (12.0-15.0) g/dL Hct (37.0-47.0) % MCV (80-100) fl MCH (26-34) pg MCHC (32-36) g/dl RDW (11.5-14.5) % Plt Count (150-375) k/mm3 MPV (7.4-10.4) fl Immature Gran % (Auto) (0-0.5) % Neut % (Auto) (45.5-73.1) % Lymph % (Auto) (18.3-44.2) % Mclennan % (Auto) (2.6-8.5) % Eos % (Auto) (0-4.4) % Baso % (Auto) (0.2-1.2) % Lymph # (Auto) (0.9-3.2) K/mm3 Mclennan # (Auto) (0.1-0.6) K/mm3 Eos # (Auto) (0-0.3) K/mm3 Baso # (Auto) (0.0-0.1) K/mm3 Abs Immat Gran (auto) (0.00-0.031) K/mm3 Absolute Neuts (auto) (1.3-6.7) K/mm3 Absolute Nucleated RBC (0.0-0.012) K/mm3 Nucleated RBC % (0.0-0.2) % Sodium (137-145) mmol/L Potassium (3.4-5.0) mmol/L Chloride (98-107) mmol/L Carbon Dioxide (22-30) mmol/L Anion Gap (4-12) mmol/L BUN (7-17) mg/dL Creatinine (0.7-1.0) mg/dL Estim Creat Clear Calc ml/min Estimated GFR (59 - ) Glucose (65-110) mg/dL Calcium (8.4-10.2) mg/dL Total Bilirubin (0.2-1.3) mg/dL AST (14-36) U/L ALT (6-35) U/L Alkaline Phosphatase (38-126) U/L Total Protein (6.3-8.2) g/dL Albumin (3.5-5.1) g/dL Lipase (23-300) U/L Urine Color (Yellow) Urine Appearance (Clear) Urine pH (5.0-9.0) Ur Specific [place] (1.001-1.035) Urine Protein (Negative) mg/dL Urine Glucose (UA) (Negative) mg/dL Urine Ketones (Negative) mg/dL Ur Blood (Man) (Negative) Urine Nitrate (Negative) Urine Bilirubin (Negative) Urine Urobilinogen (<2.0) mg/dL Leukocyte Esterase Rfl (Negative) BREE/UL Urine RBC (0-2) /hpf Urine WBC (0-3) /hpf Ur Squamous Epith Cells (Few) /hpf Urine Bacteria /hpf Urine Casts POC Urine HCG, Qual Negative (Negative) Ethyl Alcohol (<10) mg/dL Discharge Plan Discharge Clinical Impression: Acute dehydration, Alcohol abuse Patient Disposition: Home Condition: Stable Instructions: Antibiotic Form, Dehydration (ED), Clear Liquid Diet (ED), Acute Nausea and Vomiting (ED) Additional Instructions: Avoid alcohol. Zofran as needed for nausea control. Clear liquid diet for the next 3-5 days. Have close follow-up with your primary care physician. Patient Language: Yemeni Prescriptions: New ondansetron 4 mg tablet,disintegrating 4 mg PO Q8H PRN (Reason: nausea and vomiting) Qty: 14 0RF No Action fluoxetine 20 mg capsule 20 mg PO DAILY Qty: 90 0RF naltrexone 50 mg tablet 50 mg PO DAILY Qty: 90 0RF triamcinolone acetonide 0.1 % cream 1 applic topical BID Qty: 453.6 0RF Follow-up/Referrals: UNKNOWN,DOCTOR [Primary Care Provider] -
[2024-12-03 18:02] LABS: Ethanol 63 mg/dL (<10)
[2024-12-03 18:08] LABS: Add Urine Microscopic? YES; Appearance Urine Clear (Clear); Bacteria Urine 1+ /hpf; Bilirubin Urine Negative (Negative); Blood Urine Negative (Negative); Color Urine Yellow (Yellow); Glucose Urine UA Negative (Negative); Ketones Urine Trace mg/dL (Negative); Leukocyte Esterase Ur Negative LEU/UL (Negative); Nitrate Urine Negative (Negative); Non Pathogenic Casts 0-2; Protein Urine 1+ mg/dL (Negative); RBC Urine 0-2 /hpf (0-2); Squamous Epithelial Cell Urine Few /hpf (Few); WBC Urine 0-5 /hpf (0-3); pH Urine 7.5 (5.0-9.0)
[2024-12-03] MEDS: LORazepam INJ (*CRX) 2 MG/ML VIAL 1 MG IV PUSH (18:10)
== END 2024-12-03 19:26 | disposition home or self-care (01) ==
PROVIDERS: Emergency Provider Emergency Medicine
DX: E86.0 Dehydration (principal); F10.10 Alcohol abuse, uncomplicated; Y90.3 Blood alcohol level of 60-79 mg/100 ml; F41.9 Anxiety disorder, unspecified; Z86.2 Personal history of diseases of the blood and blood-forming organs and certain disorders involving the immune mechanism; Z79.899 Other long term (current) drug therapy
CPT/HCPCS: 36415; 80053; 81001; 81025; 82077; 83690; 85025; 96361; 96374; 96375; 99284; J2060; J2405; J2470; J7120

== ENCOUNTER 2024-12-22 00:09 | Emergency (ER) | payer OTHER, MEDICAID, SELFPAY ==
--- OUTSIDE RECORDS SUMMARY | 2024-12-22 00:13 | XMS_ITS | Clinical Summary ---
Author Organization [facility] Address [address] [place] [address] Care Team Providers Care Model Maker Name Role Phone Monica Lopez MD Primary [...] free since 2012. No present neurological concerns. Voucher Examiner's permit authorization completed. Call for any future [...] free since 2012. No present neurological concerns. Voucher Examiner's permit authorization completed. Call for any future [...] on file Legal Sex Female 11:21 AM VASCULAR ULTRASOUND TECHNOLOGIST Gender Identity Not on file Sexual Orientation Not on file Obstetrics History Last Filed Vital Signs Vital Sign Reading Time Taken Comments Blood Pressure 114/68 10/27/2022 8:48 AM CDT Pulse 62 10/27/2022 8:48 AM CDT Temperature 38.2 C (100.7 F) 09/12/2021 12:42 PM VASCULAR ULTRASOUND TECHNOLOGIST Respiratory Rate 16 09/12/2021 12:42 PM VASCULAR ULTRASOUND TECHNOLOGIST Oxygen Saturation 98% 09/12/2021 12:42 PM VASCULAR ULTRASOUND TECHNOLOGIST Inhaled Oxygen Concentration - - Weight 65.8 [...] Vaccines Completed 03/13/2016, 08/0 12/2014, 05/08/2014 Meningococcal B Vaccine Completed 05/23/2019, 01/13 Insurance Care Teams Model Maker Relationship Specialty Start Date End Date Monica Lopez MD PCP - General Family Practice 10/27/22
--- OUTSIDE RECORDS SUMMARY | 2024-12-22 00:13 | XMS_ITS | Clinical Summary ---
Author Organization [facility] CENTR[facility] CALL C ENTER Address [address] [place] [address] Phone Care Team Providers Care Project Management Intern Name Role Phone Provider, None Primary Care [...] 11/21/2024 Telephone [facility] [address] [place] [address] Edgardo Solano MD from Last [...] 68 kg (150 lb) 10/15/2023 6:26 PM ADJUNCT LATIN PROFESSOR Height 170.2 cm (5' 7 ) 06/03/2020 [...] make a change Department associated with goal: [facility] Steps to achieve [...] make a change Department associated with goal: [facility] Steps to achieve [...] A IGM ANTIBODY NON DETECTED NON DETECTED [facility] ARCH [id number] B 10/25/2023 11:18 PM CDT [facility] Comment: IGM Antibodies to HAV not detected. Does not exclude early acute or recovered HAV infection. HEP B CORE AB (IGM) NON DETECTED NON DETECTED [facility] ARCH [id number] B 10/25/2023 11:18 PM CDT [facility] Comment:IGM anti-HBC not det ected. Does not exclude the possibility of exposure to or infection with HBV. HEPATITIS B SURFACE ANTIGEN NON DETECTED NON DETECTED [facility] ARCH [id number] B 10/25/2023 11:18 PM CDT [facility] Comment:A nonreactive test r esult does not exclude the possibility of exposure to or infection with Hepatitis B virus. A nonreactive test result in individuals with prior exposure to hepatitis B may be due to antigen levels below the detection limit of this assay or lack of antigen reactivity to the antibodies in this assay. hepatitis C antibody 0.10 <1 S/CO [facility] ARCH [id number] B 10/25/2023 11:18 PM CDT [facility] Comment: Signal/Cutoff ratio < 0.79 [...] 10/25/2023 11:18 AM CDT us Rell Jones [facility] HEMATOLOGY ORDERABLES Final R esult [facility] [address] [place] [address], [place] from Last 3 Months or Most Recently Relevant to Health Maintenance Insurance [place] Care Teams Project Management Intern Relationship Specialty Start Date End Date Provider, None MD PCP - General 10/15/23
--- OUTSIDE RECORDS SUMMARY | 2024-12-22 00:13 | XMS_ITS | Referral Summary ---
Author Organization [facility] Address [address] [place] [address] Care Team Providers Care Sole Layer Name Role Phone Monica Lopez MD Primary [...] free since 2012. No present neurological concerns. Senior Sharepoint Developer's permit authorization completed. Call for any future [...] on file Legal Sex Female 11:21 AM REAL ESTATE INVESTMENT ANALYST Gender Identity Not on file Sexual Orientation Not on file Last Filed Vital Signs Vital Sign Reading Time Taken Comments Blood Pressure 114/68 10/27/2022 8:48 AM CDT Pulse 62 10/27/2022 8:48 AM CDT Temperature 38.2 C (100.7 F) 09/12/2021 12:42 PM REAL ESTATE INVESTMENT ANALYST Respiratory Rate 16 09/12/2021 12:42 PM REAL ESTATE INVESTMENT ANALYST Oxygen Saturation 98% 09/12/2021 12:42 PM REAL ESTATE INVESTMENT ANALYST Inhaled Oxygen Concentration - - Weight 65.8 kg (145 lb) 10/27/2022 8:48 AM CDT Height 170.2 cm (5' 7 ) 10/27/2022 8:48 AM CDT Body Mass Index 22.71 10/27/2022 8:48 AM CDT Plan of Treatment Not on file Insurance Care Teams Sole Layer Relationship Specialty Start Date End Date Monica Lopez MD PCP - General Family Practice 10/27/22
[2024-12-22 00:16] VITALS: BP 151/90; PULSE 80; RESP 20; TEMP 36.8; O2SAT 100
--- OUTSIDE RECORDS SUMMARY | 2024-12-22 01:30 | XMS_ITS | Clinical Summary ---
Author Organization [facility] Address [address] [place] [address] Care Team Providers Care Technical Editor Name Role Phone Monica Lopez MD Primary [...] free since 2012. No present neurological concerns. Corner Brace Block Machine Operator's permit authorization completed. Call for any future [...] free since 2012. No present neurological concerns. Corner Brace Block Machine Operator's permit authorization completed. Call for any future [...] on file Legal Sex Female 11:21 AM NEEDLEMAKER Gender Identity Not on file Sexual Orientation Not on file Obstetrics History Last Filed Vital Signs Vital Sign Reading Time Taken Comments Blood Pressure 114/68 10/27/2022 8:48 AM CDT Pulse 62 10/27/2022 8:48 AM CDT Temperature 38.2 C (100.7 F) 09/12/2021 12:42 PM NEEDLEMAKER Respiratory Rate 16 09/12/2021 12:42 PM NEEDLEMAKER Oxygen Saturation 98% 09/12/2021 12:42 PM NEEDLEMAKER Inhaled Oxygen Concentration - - Weight 65.8 [...] Vaccine Completed 05/23/2019, 01/13 Insurance Care Teams Technical Editor Relationship Specialty Start Date End Date Monica Lopez MD PCP - General Family Practice 10/27/22
--- OUTSIDE RECORDS SUMMARY | 2024-12-22 01:30 | XMS_ITS | Referral Summary ---
Author Organization [facility] Address [address] [place] [address] Care Team Providers Care Business Analytics Manager Name Role Phone Monica Lopez MD Primary [...] free since 2012. No present neurological concerns. Cane Weigher's permit authorization completed. Call for any future [...] on file Legal Sex Female 11:21 AM INDUSTRIAL LABORER Gender Identity Not on file Sexual Orientation Not on file Last Filed Vital Signs Vital Sign Reading Time Taken Comments Blood Pressure 114/68 10/27/2022 8:48 AM CDT Pulse 62 10/27/2022 8:48 AM CDT Temperature 38.2 C (100.7 F) 09/12/2021 12:42 PM INDUSTRIAL LABORER Respiratory Rate 16 09/12/2021 12:42 PM INDUSTRIAL LABORER Oxygen Saturation 98% 09/12/2021 12:42 PM INDUSTRIAL LABORER Inhaled Oxygen Concentration - - Weight 65.8 kg (145 lb) 10/27/2022 8:48 AM CDT Height 170.2 cm (5' 7 ) 10/27/2022 8:48 AM CDT Body Mass Index 22.71 10/27/2022 8:48 AM CDT Plan of Treatment Not on file Insurance Care Teams Business Analytics Manager Relationship Specialty Start Date End Date Monica Lopez MD PCP - General Family Practice 10/27/22
--- OUTSIDE RECORDS SUMMARY | 2024-12-22 01:30 | XMS_ITS | Clinical Summary ---
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 Does not exclude early acute or recovered HAV infection. HEP B CORE AB (IGM) NON DETECTED NON DETECTED [facility] ARCH [id number] B 10/25/2023 11:18 PM CDT [facility] Comment:IGM anti-HBC not det ected. Does not exclude the possibility of exposure to or infection with HBV. HEPATITIS B SURFACE ANTIGEN NON DETECTED NON DETECTED [facility] ARCH [id number] B 10/25/2023 11:18 PM CDT [facility] Comment:A nonreactive test r esult does not exclude the possibility of exposure to or infection with Hepatitis B virus. A nonreactive test result in individuals with prior exposure to hepatitis B may be due to antigen levels below the detection limit of this assay or lack of antigen reactivity to the antibodies in this assay. hepatitis C antibody 0.10 <1 S/CO [facility] ARCH [id number] B 10/25/2023 11:18 PM CDT [facility] Comment: Signal/Cutoff ratio < 0.79 is Nondetected Signal/Cutoff ratio 0.80-0.99 is Grayzone Signal/Cutoff ratio > 0.99 is Detected Supplemental assays are recommended if signal/cutoff ratio is >/=1.00. Signal/cutoff ratio result >/= 5.00 is 97% predictive of positivity for recombinant immunoblot assay (RIBA) and will be reported to the [place] Department [facility] as required. 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
== END 2024-12-22 01:24 | disposition left against medical advice (07) ==
LOC: ANHED 01:29
DX: R11.2 Nausea with vomiting, unspecified (principal)
CPT/HCPCS: 99199

== ENCOUNTER 2025-02-03 10:06 | Emergency (ER) | payer OTHER, MEDICAID, SELFPAY ==
--- NOTE | ~2025-02-03 | XR_ITS ---
EXAMINATION: XR chest 1V portable DATE: 02/03/2025 13:12 INDICATION: Chest pain TECHNIQUE: frontal view of the chest was obtained. COMPARISON: None FINDINGS: The lungs are clear with no focal airspace opacities, pulmonary edema, pleural effusion or pneumothor ax. The cardiomediastinal silhouette is normal. Visualized bones and soft tissues are unremarkable. IMPRESSION: 1. No acute cardiopulmonary disease. Reviewed, dictated and finalized at location A.
--- NOTE | 2025-02-03 11:35 | ED.GENADULT ---
HPI - General Adult General Chief complaint: Nausea/Vomiting/Diarrhea Stated complaint: n/v, HAUSER Time Seen by Provider: 02/03/25 11:17 History of Present Illness HPI narrative: This is a 24-year-old female history of alcohol use disorder presenting for concerns about withdrawal. Patient has been on a Lane for the last several days drinking a 11% alcohol wine cooler. She has been on a [address] Now she has mild nausea without vomiting. Headache. And anxiety. She does not have tremors hallucinations tactile disturbances or agitation Related Data Allergies Allergy/AdvReac Type Severity Reaction Status Date / Time red dye Allergy Intermediate Rash Verified 02/03/25 11:54 [facility] Past Medical History Medical History Anxiety Anemia Family History Family History Mother Depression Anxiety Grandparent Anxiety Depression Social History Social History Smoking status: Never smoker Alcohol intake: former Substance use: never Living arrangements: with roommate(s) Occupation/Education: occupation Exam Narrative: APPEARANCE: No apparent distress. Well appearing overall Head: atraumatic. EYES: EOMI, NOSE: Atraumatic NECK: Trachea midline RESPIRATORY: No increased rate of breathing clear to auscultation CARDIOVASCULAR: RRR, no peripheral edema ABDOMINAL: Non-distended nontender MUSCULOSKELETAl: No obvious deformities NEURO: Alert. Moving 4/4 extremities no tremor SKIN:: Warm, dry. Normal color PSYCHIATRIC: Normal affect Medical Decision Making [facility] Narrative Medical decision making narrative: -Course: 24-year-old female presents several days after a 5 day alcoholic binge. She is concerned about alcohol withdrawal. Her CIWA score is 2 for nausea without vomiting and mild anxiety. No concern for true alcohol withdrawal at this time. Patient was given symptomatic treatment with fluids and antiemetics. She is now tolerating p.o.. She is stable vital signs. Her physical exam is unremarkable. She will be discharged continue with her outpatient alcoholism therapy. -DDX includes but is not limited to: Alcohol poisoning, hangover, alcohol withdrawal CIWA-Ar for Alcohol Withdrawal from [employer] on 02/03/2025 All calculations should be rechecked by clinician prior to use RESULT SUMMARY: 2 points Patients with scores <= typically do not require medication for withdrawal. INPUTS: Nausea/vomiting ?> 1 = Mild nausea and no vomiting Tremor ?> 0 = No tremor Paroxysmal sweats ?> 0 = No sweat visible Anxiety ?> 1 = Mildly anxious Agitation ?> 0 = Normal activity Tactile disturbances ?> 0 = None Auditory disturbances ?> 0 = Not present Visual disturbances ?> 0 = Not present Headache/fullness in head ?> 0 = Not Present Orientation/clouding of sensorium ?> 0 = Oriented, can do serial additions Discharge Plan Discharge Clinical Impression: ETOH abuse Patient Disposition: Home Condition: Stable Instructions: Antibiotic Form, Acute Nausea and Vomiting (ED) Additional Instructions: You were seen in the emergency department for nausea. Please continue with your alcohol abuse treatment. Return to the ED if you develop any new or worsening symptoms. Patient Language: Upper Sorbian Prescriptions: New ondansetron 4 mg tablet,disintegrating 4 mg PO Q8H PRN (Reason: nausea and vomiting) Qty: 30 0RF No Action naltrexone 50 mg tablet 50 mg PO DAILY Qty: 90 0RF triamcinolone acetonide 0.1 % cream 1 applic topical BID Qty: 453.6 0RF ondansetron 4 mg tablet,disintegrating 4 mg PO Q8H PRN (Reason: nausea and vomiting) Qty: 14 0RF fluoxetine 20 mg capsule 20 mg PO DAILY Qty: 90 1RF Follow-up/Referrals: Adelaide Becerra APRN [Primary Care Provider] -
--- NOTE | 2025-02-03 11:36 | ECG_ITS ---
Test Date: 2025-02-03 11:46:42 Measurements Intervals [place] Rate: 96 P: 65 MN: 167 QRS: 50 QRSD: 87 T: 29 QT: 348 QTc: 441 Interpretive Statements SINUS RHYTHM NORMAL ECG No previous ECG available for comparison Electronically Signed On 02-03-2025 13:39:50 CDT by Fuentes Ravi D.O.
[2025-02-03 11:45] VITALS: BP 144/105; PULSE 98; RESP 16; TEMP 36.8; O2SAT 100
[2025-02-03 11:48] LABS: Basophils Percent Auto 0.8 % (0.2-1.2); Eosinophils Percent Auto 0.6 % (0-4.4); Hemoglobin 12.1 g/dL (12.0-15.0); Immature Granulocyte Absolute 0.01 K/mm3 (0.00-0.031); Immature Granulocyte Percent A 0.2 % (0-0.5); Lymphocytes Absolute Auto 1.59 K/mm3 (0.9-3.2); Lymphocytes Percent Auto 31.3 % (18.3-44.2); Mean Corpuscular Hemoglobin 24.1 pg (26-34); Mean Corpuscular Volume 77.7 fl (80-100); Mean Platelet Volume 9.8 fl (7.4-10.4); Monocytes Absolute Auto 0.5 K/mm3 (0.1-0.6); Monocytes Percent Auto 9.6 % (2.6-8.5); Neutrophils Absolute Auto 2.9 K/mm3 (1.3-6.7); Neutrophils Percent Auto 57.5 % (45.5-73.1); Platelet Count Result 321 k/mm3 (150-375); Red Blood Count 5.02 M/mm3 (4.2-5.4); White Blood Count 5.1 K/mm3 (4.5-10.0)
[2025-02-03] MEDS: SODIUM CHLORIDE 0.9% IV 2,000 ML 999 ML IV CONT (11:50)
[2025-02-03] MEDS: ONDANSETRON INJ 4 MG/2 ML VIAL IV PUSH (11:51)
[2025-02-03 11:52] LABS: BEDSIDEPREGUCG Negative (Negative)
[2025-02-03] MEDS: FAMOTIDINE 20 MG/2 ML VIAL IV PUSH (11:52)
[2025-02-03 12:06] LABS: Amphetamine Screen Urine Negative (Negative); Barbiturate Screen Urine Negative (Negative); Benzodiazepines Screen Urine Negative (Negative); Cannabinoid Screen Urine Negative (Negative); Cocaine Screen Urine Negative (Negative); Methadone Screen Urine Negative (Negative); Opiate Screen Urine Negative (Negative); Phencyclidine Screen Urine Negative (Negative)
[2025-02-03 12:07] LABS: Alanine Aminotransferase 24 U/L (6-35); Albumin Level 5.3 g/dL (3.5-5.1); Alkaline Phosphatase 79 U/L (38-126); Anion Gap 13 mmol/L (4-12); Aspartate Amino Transferase 55 U/L (14-36); Bilirubin,Total 1.4 mg/dL (0.2-1.3); Blood Urea Nitrogen 16 mg/dL (7-17); Calcium 9.9 mg/dL (8.4-10.2); Carbon Dioxide 25 mmol/L (22-30); Chloride 103 mmol/L (98-107); Estimated CRCL calculation 86 ml/min; Estimated Glomerular Filt Rate > 60; Ethanol < 10 mg/dL (<10); Glucose 78 mg/dL (65-110); Lipase 60 U/L (23-300); Sodium 141 mmol/L (137-145); Total Protein 9.2 g/dL (6.3-8.2)
[2025-02-03 12:39] VITALS: BP 130/81; PULSE 95; RESP 16; O2SAT 100
[2025-02-03] MEDS: METOCLOPRAMIDE HCL INJ 10 MG/2 ML VIAL IV PUSH (13:31)
[2025-02-03 13:36] VITALS: BP 124/80; PULSE 98; RESP 14; O2SAT 100
[2025-02-03 14:10] VITALS: BP 140/95; PULSE 95; RESP 16; TEMP 36.9; O2SAT 99
== END 2025-02-03 14:14 | disposition home or self-care (01) ==
PROVIDERS: Emergency Provider Emergency Medicine; PCP Nurse Practitioner Family
DX: F10.10 Alcohol abuse, uncomplicated (principal); Y90.0 Blood alcohol level of less than 20 mg/100 ml; Z86.2 Personal history of diseases of the blood and blood-forming organs and certain disorders involving the immune mechanism
CPT/HCPCS: 36415; 71045; 80053; 80307; 81025; 82077; 83690; 85025; 93005; 96361; 96374; 96375; 99284; J2405; J2765; J7030